=== PATIENT | female | born 1990 | race African-American/Black ===

== ENCOUNTER 2018-12-10 09:58 | Emergency (ER) | payer OTHER ==
[2018-12-10 10:09] VITALS: BP 104/66
--- NOTE | 2018-12-10 10:33 | ED ---
- HPI Summary HPI Summary: Pt is a 28 y/o F presenting to the ED brought in by EMS for . She is currently 34 wks , and this is her 1st . 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 The pts systolic BP was in the 80s-90s. The pt denies vaginal bleeding, discharge, fever, back pain, chills, erythema of eyes, sore throat, CP, SOB, cough, N/V, dysuria, hematuria, myalgia, edema, rash, or dizziness. She has had no prior complications with this . - History of Current Complaint Chief Complaint: EDOBProblems Stated Complaint: 34 WEEKS PREG/LOWER ABD PAIN PER EMS Time Seen by Provider: 12/10/18 09:59 Hx Obtained From: Patient Chief Complaint: Pain Onset/Duration: Started Minutes Ago, Still Present Timing: Constant, Lasting Minutes Severity: Severe Current Severity: Severe Pain Intensity: 9 Location of Pain: Suprapubic Character: Cramping Aggravating Factors: Nothing Alleviating Factors: Nothing Associated Signs and Symptoms: Negative: Back Pain, Fever, Nausea, Urinary Symptoms, Vaginal Bleeding or Discharge, Vomiting - Assessment Hx Now: Yes Vaginal Bleeding Amount: None Hx Hysterectomy: No - Allergies/Home Medications Allergies/Adverse Reactions: Allergies Allergy/AdvReac Type Severity Reaction Status Date / Time No Known Allergies Allergy Verified 01/10/15 09:30 PMH/Surg Hx/FS Hx/Imm Hx Previously Healthy: Yes Endocrine/Hematology History: Denies: Hx Diabetes Cardiovascular History: Denies: Hx Hypertension, Hx Pacemaker/ICD Respiratory History: Denies: Hx Asthma History: Denies: Hx Renal Disease Sensory History: Denies: Hx Hearing Aid Psychiatric History: Denies: Hx Panic Disorder Infectious Disease History: No Infectious Disease History: Denies: Traveled Outside the [place] in Last 30 Days - Family History Known Family History: Negative: Renal Disease - Social History Alcohol Use: None Hx Substance Use: No Substance Use Type: Reports: None Hx Tobacco Use: No Smoking Status (MU): Never Smoked Tobacco Review of Systems Negative: Fever, Chills Negative: Erythema Negative: Sore Throat Negative: Chest Pain Negative: Shortness Of Breath, Cough Positive: Abdominal Pain. Negative: Vomiting, Nausea Negative: dysuria, discharge, hematuria, other - vaginal bleeding Negative: Myalgia Negative: Rash Neurological: Negative - dizziness All Other Systems Reviewed And Are Negative: Yes Physical Exam - Summary Physical Exam Summary: Constitutional: Well-developed, Well-nourished, Alert. (-) Distressed Skin: Warm, Dry HENT: Normocephalic; Atraumatic Eyes: Conjunctiva normal Neck: Musculoskeletal ROM normal neck. (-) JVD, (-) Stridor, (-) Tracheal deviation Cardio: Rhythm regular, rate normal, Heart sounds normal; Intact distal pulses; The pedal pulses are 2+ and symmetric. Radial pulses are 2+ and symmetric. (-) Murmur Pulmonary/Chest wall: Effort normal. (-) Respiratory distress, (-) Wheezes, (-) Rales Abd: Gravid abd with fundal height above the umbilicus, suprapubic tenderness, ( -) Distension, (-) Guarding, (-) Rebound Musculoskeletal: (-) Edema Lymph: (-) Cervical adenopathy Neuro: Alert, Oriented x3 Psych: Mood and affect Normal - Physical Exam Triage Information Reviewed: Yes Vital Signs Reviewed: Yes Diagnostics - Vital Signs Vital Signs Temp Pulse Resp BP Pulse Ox 12/10/18 10:10 97.5 F 60 24 104/66 100 12/10/18 10:00 97.5 F 60 24 104/66 100 - Laboratory Lab Statement: Any lab studies that have been ordered have been reviewed, and results considered in the medical decision making process. Course/Dx - Course Course Of Treatment: Pt is a 28 y/o F presenting to the ED brought in by EMS for . She is currently 34 wks , and this is her 1st . 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 The pts systolic BP was in the 80s-90s. The pt denies vaginal bleeding, discharge, fever, back pain, chills, erythema of eyes, sore throat, CP, SOB, cough, N/V, dysuria, hematuria, myalgia, edema, rash, or dizziness. She has had no prior complications with this . Pt's physical exam shows a gravid abd with fundal height above the umbilicus and suprapubic tenderness. Dr. Velez was contacted at 1000 and the pt was immediately d/c'ed to labor & delivery. Dx includes pre-term labor. - Diagnoses Provider Diagnoses: labor with term delivery Discharge ED - Sign-Out/Discharge Documenting (check all that apply): Patient Departure - Discharge Plan Condition: Stable Disposition: ADMITTED TO [facility] Referrals: Eligio Leyva MD [Primary Care Provider] - - Attestation Statements Document Initiated by Scribe: Yes Documenting Scribe: Marina Wisdom Provider For Whom Scribe is Documenting (Include Credential): David Sadler MD. Scribe Attestation: Marina Jolly scribed for David Sadler MD. on 12/10/18 at 1624. Status of Scribe Document: Ready
== END 2018-12-10 10:10 | disposition short-term general hospital (02) ==
LOC: ED 09:58
DX: O60.23X0 Term delivery with preterm labor, third trimester, not applicable or unspecified (principal); Z3A.34 34 weeks gestation of pregnancy
CPT/HCPCS: 99282

== ENCOUNTER 2018-12-10 10:17 | Inpatient (IN) | payer OTHER ==
[2018-12-10] MEDS ORDERED: fentaNYL* 50 MCG/ML 2 ML VIAL (100 MCG VIAL) ONE ×2 (10:26→10:29)
[2018-12-10] MEDS ORDERED: Midazolam* 1 MG/ML 5 ML VIAL (5 MG) ONE (10:28)
[2018-12-10] MEDS ORDERED: fentaNYL* 50 MCG/ML 5 ML VIAL (250 MCG VIAL) ONE (10:28)
[2018-12-10] MEDS ORDERED: Methylergonovine INJ* 0.2 MG/ML 1ML AMP ONE (10:47)
[2018-12-10 11:10] LABS: Hematocrit 31 % (35-47); Mean Corpuscular HGB Conc 32 g/dL (31-36); Mean Corpuscular Hemoglobin 31 pg (27-31); Mean Corpuscular Volume 98 fL (80-97); Mean Platelet Volume 10.5 fL (7.4-10.4); Platelet Count 136 10^3/uL (150-450); Red Blood Count 3.19 10^6 /uL (3.70-4.87); Red Cell Distribution Width 14 % (10-15); White Blood Count 10.3 10^3/uL (3.5-10.8)
[2018-12-10 11:18] LABS: Activated Partial Thrombo Time 25.1 seconds (26.0-38.0); INR 0.94 (0.82-1.09)
[2018-12-10] MEDS ORDERED: EPHEDrine (Pressors)* 50 MG/ML VIAL ONE (11:39)
[2018-12-10] MEDS ORDERED: OXYTOCIN* 10 UNITS/ML 1 ML VIAL ONE (11:39)
[2018-12-10] MEDS ORDERED: Propofol* 10 MG/ML 20 ML BTL ONE (11:39)
[2018-12-10] MEDS ORDERED: Succinylcholine* 20 MG/ML 10 ML VIAL ONE (11:39)
[2018-12-10] MEDS ORDERED: PROCHLORPERAZINE INJ 5 MG/ML 2 ML VIAL IV PRN (11:44)
[2018-12-10] MEDS ORDERED: Ondansetron INJ* 2 MG/ML VIAL IV PRN ×2 (11:44→18:46)
[2018-12-10] MEDS ORDERED: fentaNYL* 50 MCG/ML 2 ML VIAL (100 MCG VIAL) IV PRN (11:44)
[2018-12-10] MEDS ORDERED: Naloxone* 0.4 MG/ML 1 ML VIAL IV PRN (11:44)
[2018-12-10] MEDS ORDERED: Acetaminophen IV 1GM/100ML * 1,000 MG/100 ML VIAL IVPB ONE (11:44)
[2018-12-10] MEDS ORDERED: Ketorolac INJ* 30 MG/ML 1 ML VIAL IV PRN (11:44)
[2018-12-10] MEDS ORDERED: oxyCODONE TAB* 5 MG TAB PO PRN ×2 (11:44→17:31)
[2018-12-10] MEDS ORDERED: Sodium Citrate/Citric Acid* 15 ML UDC ONE (11:48)
[2018-12-10] MEDS ORDERED: Acetaminophen TAB* 325 MG PO PRN (12:21)
[2018-12-10] MEDS ORDERED: oxyCODONE/Acetamin 5/325 MG* TAB PO PRN ×2 (12:21)
[2018-12-10] MEDS ORDERED: Dibucaine 1% 28.35 GM TUBE PR PRN (12:21)
[2018-12-10] MEDS ORDERED: Witch Hazel PAD* JAR TOPICAL PRN (12:21)
[2018-12-10] MEDS ORDERED: Zolpidem TAB* 5 MG PO PRN (12:21)
[2018-12-10] MEDS ORDERED: Glycerin ADULT SUPP PR PRN (12:21)
[2018-12-10] MEDS ORDERED: Lactated Ringers 1000 ML Bag* 1,000 ML IV SCH ×2 (13:00→18:00)
[2018-12-10 14:00] LABS: ALT 8 U/L (7-52); Albumin 3.2 g/dL (3.2-5.2); Albumin/Globulin Ratio 1.2 (1-3); Alkaline Phosphatase 99 U/L (34-104); BUN/Creatinine Ratio 13.4 (8-20); Blood Urea Nitrogen 9 mg/dL (6-24); CO2 Carbon Dioxide 17 mmol/L (22-32); Calcium 8.1 mg/dL (8.6-10.3); Chloride 108 mmol/L (101-111); EGFR African American 126.8 (>60); EGFR Non-African American 104.8 (>60); Globulin 2.7 g/dL (2-4); Glucose 98 mg/dL (70-100); Sodium 136 mmol/L (135-145); Total Protein 5.9 g/dL (6.4-8.9); Uric Acid 3.9 mg/dL (2.3-6.6)
[2018-12-10 14:17] LABS: Anion Gap 11 mmol/L (2-11)
[2018-12-10] MEDS: Simethicone TAB* 80 MG TAB.CHEW PO SCH ×3 (14:27→21:41)
[2018-12-10] MEDS: Docusate CAP* 100 MG PO SCH ×2 (14:29→21:41)
[2018-12-10] MEDS ORDERED: Ketorolac INJ* 30 MG/ML 1 ML VIAL IV PUSH PRN (17:18)
--- NOTE | 2018-12-10 17:38 | HP ---
General Information - Reason for Visit Arrived via ambulance with abdominal pain. She felt dizzy at home and almost passed out in the ambulance. - General Information Maternal Age: 28 Grav: 1 Para: 0 SAB: 0 IEA: 0 Estimated Due Date: 01/16/19 Determined By: LMP Maternal Blood Type and Rh: O Positive - Results this Serology/RPR Result: Non-Reactive Rubella Result: Immune HBsAg Result: Negative HIV Result: Negative Past Medical History Pertinent Past Medical History: Non-Contributory Pertinent Past Surgical History: None Pertinent Family History: Non-Contributory - Antepartal Records Antepartal Records: Reviewed, Uncomplicated Review of Systems Constitutional: Uncomfortable - Unable to get adequate review of systems due to need for STAT CS Exam Allergies/Adverse Reactions: Allergies No Known Allergies Allergy (Verified 01/10/15 09:30) Vital Signs 12/10/18 12/10/18 12/10/18 12:40 13:15 14:15 Temperature 99.1 F 98.7 F Pulse Rate 89 88 Respiratory 16 16 Rate Blood Pressure 133/49 110/68 (mmHg) O2 Sat by Pulse 99 Oximetry 12/10/18 15:45 Temperature 99.4 F Pulse Rate 87 Respiratory 16 Rate Blood Pressure 101/53 (mmHg) O2 Sat by Pulse Oximetry Lab Values - Entire Visit: Laboratory Tests 12/10/18 12/10/18 12/10/18 10:15 10:15 10:15 WBC 10.3 RBC 3.19 L Hgb 10.0 L Hct 31 L MCV 98 H MCH 31 MCHC 32 RDW 14 Plt Count 136 L MPV 10.5 H INR (Anticoag Therapy) 0.94 APTT 25.1 L Sodium Potassium Chloride Carbon Dioxide Anion Gap BUN Creatinine Est GFR ( Amer) Est GFR (Non-Af Amer) BUN/Creatinine Ratio Glucose Uric Acid Calcium Total Bilirubin AST ALT Alkaline Phosphatase Total Protein Albumin Globulin Albumin/Globulin Ratio Blood Type O Positive Antibody Screen Negative 12/10/18 10:15 WBC RBC Hgb Hct MCV MCH MCHC RDW Plt Count MPV INR (Anticoag Therapy) APTT Sodium 136 Potassium TNP Chloride 108 Carbon Dioxide 17 L Anion Gap 11 BUN 9 Creatinine 0.67 Est GFR ( Amer) 126.8 Est GFR (Non-Af Amer) 104.8 BUN/Creatinine Ratio 13.4 Glucose 98 Uric Acid 3.9 Calcium 8.1 L Total Bilirubin 0.40 AST TNP ALT 8 Alkaline Phosphatase 99 Total Protein 5.9 L Albumin 3.2 Globulin 2.7 Albumin/Globulin Ratio 1.2 Blood Type Antibody Screen - Measurements Height: 5 ft 3 in Weight: 200 lb Weight in lbs: [id number] Body Mass Index (BMI): 35.4 Pre- Weight: 165 lb Weight Gained This : 35 lbs and 0 ozs - Exam Other Exam Findings: Exam deferred due to need for STAT CS - Ultrasound/Biophysical Profile Ultrasound Status: Bedside Exam - FHR visually in the 60-70s. Assessment/Plan - Assessment @34.5wks GA with placental abruption who underwent STAT CS. Baby was delivered 17min s/p initial nurse assessment. - Plan Plan: Expedite C/S Delivery
[2018-12-10 18:00] LABS: Hematocrit 19 % (35-47); Hemoglobin 6.3 g/dL (12.0-16.0); Mean Corpuscular HGB Conc 34 g/dL (31-36); Mean Corpuscular Hemoglobin 31 pg (27-31); Mean Corpuscular Volume 92 fL (80-97); Mean Platelet Volume 8.8 fL (7.4-10.4); Platelet Count 93 10^3/uL (150-450); Red Blood Count 2.05 10^6 /uL (3.70-4.87); Red Cell Distribution Width 14 % (10-15); White Blood Count 15.6 10^3/uL (3.5-10.8)
[2018-12-10 18:23] LABS: ABS Lymphocytes 0.7 10^3/ul (1.0-4.8); ABS Monocytes 1.1 10^3/ul (0-0.8); ABS Neutrophils 13.8 10^3/ul (1.5-7.7); Lymphocyte % 4.5 %
--- NOTE | 2018-12-10 20:40 | OP ---
DATE OF OPERATION: 12/10/18 - ROOM #113 DATE OF : 89 SURGEON: Evelia Velez MD BOX STACKER: Nay Cortes CNM ANESTHESIA: General endotracheal. PRE-OP DIAGNOSES: 1. Intrauterine gestation at 34 and 5 weeks' gestational age. 2. bradycardia. 3. Abdominal pain. POST-OP DIAGNOSES: 1. Intrauterine gestation at 34 and 5 weeks' gestational age. 2. bradycardia. 3. Abdominal pain. 4. Placental abruption. OPERATIVE PROCEDURE: Primary lower transverse section. ESTIMATED BLOOD LOSS: 1800 mL including blood clot in the uterus. COUNTS: All correct. DRAINS: Wiley catheter. FLUIDS: Crystalloid. INDICATION: The patient is a 28-year-old G1, P0, who arrived to Labor and Delivery by ambulance with complaints of abdominal pain and passing out. On arrival, she was mildly obtunded. An ultrasound was quickly brought into the room with findings of a very low heart rate, estimated in the 60s to 70s. Therefore, staff was quickly mobilized for stat section. The patient verbally consented to the section. She did not have any support people with her at that time. She was quickly moved to the OR and underwent general anesthesia that was found to be adequate. FINDINGS: Female infant, Apgars 3, 5, and 7. Weight 4 pounds 8 ounces. Normal -appearing uterus, ovaries, and tubes. Placenta detached from the uterus with significant amount of blood clot inside the uterine cavity. DESCRIPTION OF PROCEDURE: The patient was placed in the supine position with a leftward tilt. A Wiley catheter was introduced into her bladder. She was prepped and draped in the normal fashion. A Pfannenstiel skin incision was made with a scalpel and carried down to the underlying layer of fascia. The fascia was incised on either side of the midline with a scalpel. The incision was extended laterally with a combination of sharp and blunt dissection. The inferior edge of the fascial incision was grasped with Terry clamps and dissected down bluntly. Then the superior edge of the fascial incision was grasped with Terry clamps and dissected down bluntly. The rectus muscles were in the midline and the peritoneum was entered bluntly. A transverse incision was made in the lower uterine segment with the scalpel. The was delivered in cephalic presentation without difficulty. The cord was clamped x2 and cut and the baby was handed to the stereo map plotter operator. A large amount of blood clot was found inside the uterine cavity immediately after the baby was removed. The placenta easily was removed then as well with evidence of clots and abruption. The uterus was exteriorized and cleared of clots and debris. The uterine incision was closed with 0 Vicryl in a running locked fashion. Initially, the uterus was boggy but once the incision was closed, it became more firm and the bleeding subsided. A second layer of suture was then placed imbricating the first. The abdomen was irrigated and the uterus was placed back into the abdominal cavity. The incision was inspected and good hemostasis was noted. The peritoneum was closed with 3-0 Vicryl in a running unlocked fashion. The muscles were inspected and good hemostasis was noted. The fascia was then closed with 0 Vicryl in a running unlocked fashion. Good hemostasis was also noted in the subcuticular layer. At this time, an x-ray was done since no count was done prior to starting the procedure. Then the skin was closed with susan. A dressing was placed. The patient was cleaned, moved to the stretcher, and taken to the recovery room in stable condition. [id number]/CPS #: [id number] MARY
[2018-12-11 01:40] LABS: ABS Lymphocytes 1.7 10^3/ul (1.0-4.8); ABS Monocytes 1.4 10^3/ul (0-0.8); ABS Neutrophils 13.2 10^3/ul (1.5-7.7); Hematocrit 26 % (35-47); Hemoglobin 8.7 g/dL (12.0-16.0); Lymphocyte % 10.2 %; Mean Corpuscular HGB Conc 34 g/dL (31-36); Mean Corpuscular Hemoglobin 31 pg (27-31); Mean Corpuscular Volume 91 fL (80-97); Mean Platelet Volume 8.9 fL (7.4-10.4); Platelet Count 83 10^3/uL (150-450); Red Blood Count 2.82 10^6 /uL (3.70-4.87); Red Cell Distribution Width 14 % (10-15); White Blood Count 16.4 10^3/uL (3.5-10.8)
[2018-12-11 01:58] LABS: Albumin 2.4 g/dL (3.2-5.2); BUN/Creatinine Ratio 12.5 (8-20); Calcium 7.5 mg/dL (8.6-10.3); EGFR Non-African American 128.9 (>60); Globulin 2.4 g/dL (2-4); Potassium 3.8 mmol/L (3.5-5.0); Schistocytes ABSENT; Total Bilirubin 0.6 mg/dL (0.2-1.0); Total Protein 4.8 g/dL (6.4-8.9); Uric Acid 3.6 mg/dL (2.3-6.6)
[2018-12-11 01:59] LABS: Platelet Count 83 10^3/ul (150-450)
[2018-12-11 02:12] LABS: Activated Partial Thrombo Time 30.9 seconds (26.0-38.0); INR 1.05 (0.82-1.09)
[2018-12-11 02:15] LABS: Fibrinogen 261.2 mg/dL (110.8-404.3)
[2018-12-11] MEDS: Simethicone TAB* 80 MG TAB.CHEW PO SCH ×4 (07:16→23:30)
[2018-12-11] MEDS: Docusate CAP* 100 MG PO SCH ×3 (07:16→21:20)
[2018-12-11] MEDS: Ferrous Gluconate TAB* 324 MG TAB PO SCH ×2 (08:20→21:19)
[2018-12-11] MEDS: Ibuprofen TAB* 600 MG PO PRN ×3 (08:45→21:20)
[2018-12-11 08:53] LABS: ABS Lymphocytes 1.3 10^3/ul (1.0-4.8); ABS Monocytes 1.2 10^3/ul (0-0.8); ABS Neutrophils 12.8 10^3/ul (1.5-7.7); Eosinophil % 0.1 %; Hematocrit 24 % (35-47); Hemoglobin 8.2 g/dL (12.0-16.0); Lymphocyte % 8.4 %; Mean Corpuscular HGB Conc 34 g/dL (31-36); Mean Corpuscular Hemoglobin 31 pg (27-31); Mean Corpuscular Volume 91 fL (80-97); Mean Platelet Volume 8.6 fL (7.4-10.4); Platelet Count 85 10^3/uL (150-450); Red Blood Count 2.65 10^6 /uL (3.70-4.87); Red Cell Distribution Width 14 % (10-15); White Blood Count 15.3 10^3/uL (3.5-10.8)
[2018-12-11] MEDS ORDERED: Benzocaine/Menthol LOZ* 1 LOZENGE MT PRN (10:40)
[2018-12-12] MEDS: Ferrous Gluconate TAB* 324 MG TAB PO SCH ×2 (08:23→21:05)
[2018-12-12] MEDS: Ibuprofen TAB* 600 MG PO PRN ×3 (08:23→21:05)
[2018-12-12] MEDS: Docusate CAP* 100 MG PO SCH ×3 (08:23→21:04)
[2018-12-12] MEDS: Simethicone TAB* 80 MG TAB.CHEW PO SCH ×3 (08:24→21:05)
[2018-12-13] MEDS: Ibuprofen TAB* 600 MG PO PRN ×2 (01:45→07:57)
[2018-12-13] MEDS: Ferrous Gluconate TAB* 324 MG TAB PO SCH (07:56)
[2018-12-13] MEDS: Docusate CAP* 100 MG PO SCH (07:56)
[2018-12-13] MEDS: Simethicone TAB* 80 MG TAB.CHEW PO SCH (07:57)
[2018-12-13 12:33] VITALS: BP 127/80
== END 2018-12-13 13:45 | disposition home or self-care (01) | DRG 786 ==
LOC: MCHOBOUT 10:17 → MCHOB 10:20
PROVIDERS: ADMIT Obstetrics & Gynecology; ATTEND Obstetrics & Gynecology
PROC: 30233N1 Transfusion of Nonautologous Red Blood Cells into Peripheral Vein, Percutaneous Approach (ICD-10-PCS; 2018-12-10)
PROC: 10D00Z1 Extraction of Products of Conception, Low, Open Approach (ICD-10-PCS; principal; 2018-12-10 10:15)
DX: O76 Abnormality in fetal heart rate and rhythm complicating labor and delivery (principal); O45.93 Premature separation of placenta, unspecified, third trimester; O90.81 Anemia of the puerperium; D64.89 Other specified anemias; Z3A.34 34 weeks gestation of pregnancy; Z37.0 Single live birth
CPT/HCPCS: 36415; 74018; 80053; 84550; 85025; 85027; 85049; 85060; 85362; 85384; 85610; 85730; 86850; 86900; 86901; 86922; 88307; A9270-GY; J0330; J1885; J2210; J2250; J2405; J2590; J2704; J3010; P9040

== ENCOUNTER 2019-01-03 23:46 | Emergency (ER) | payer OTHER ==
[2019-01-04 01:26] LABS: ABS Eosinophils 0.1 10^3/ul (0-0.6); ABS Lymphocytes 1.5 10^3/ul (1.0-4.8); ABS Monocytes 0.7 10^3/ul (0-0.8); Hematocrit 34 % (35-47); Hemoglobin 11.2 g/dL (12.0-16.0); Lymphocyte % 24.3 %; Mean Corpuscular HGB Conc 33 g/dL (31-36); Mean Corpuscular Hemoglobin 30 pg (27-31); Mean Corpuscular Volume 92 fL (80-97); Mean Platelet Volume 8.9 fL (7.4-10.4); Platelet Count 270 10^3/uL (150-450); Red Blood Count 3.73 10^6 /uL (3.70-4.87); Red Cell Distribution Width 15 % (10-15); White Blood Count 6.4 10^3/uL (3.5-10.8)
[2019-01-04 01:28] LABS: Albumin 3.6 g/dL (3.2-5.2); Albumin/Globulin Ratio 1.2 (1-3); BUN/Creatinine Ratio 19.5 (8-20); C Reactive Protein 3.92 mg/L (<8.01); Calcium 8.8 mg/dL (8.6-10.3); EGFR Non-African American 89.3 (>60); Potassium 3.9 mmol/L (3.5-5.0); Total Bilirubin 0.4 mg/dL (0.2-1.0); Total Protein 6.6 g/dL (6.4-8.9)
[2019-01-04 01:35] LABS: HCG Pregnancy 7.5 mIU/mL
--- NOTE | 2019-01-04 01:48 | ED ---
GI/ HPI - HPI Summary HPI Summary: 28-year-old female presents with abdominal pain today. pain is in the right lower abdomen. States it is intermittent. She denies any nausea vomiting diarrhea. She admits to dysuria. Just had a done a couple weeks ago. No rash. No chest pain or shortness of breath. Pain does not move anywhere. She states the pain has been decreasing. Hasn't taking anything for the pain. Has a follow-up with [facility] in the morning. She is breast-feeding. Has no medical conditions. - History of Current Complaint Chief Complaint: EDAbdPain Time Seen by Provider: 01/04/19 00:28 Stated Complaint: ABD PAIN PER PT Pain Intensity: 7 - Allergy/Home Medications Allergies/Adverse Reactions: Allergies Allergy/AdvReac Type Severity Reaction Status Date / Time No Known Allergies Allergy Verified 01/10/15 09:30 PMH/Surg Hx/FS Hx/Imm Hx Endocrine/Hematology History: Denies: Hx Diabetes Cardiovascular History: Denies: Hx Hypertension, Hx Pacemaker/ICD Respiratory History: Denies: Hx Asthma History: Denies: Hx Renal Disease Sensory History: Denies: Hx Hearing Aid Psychiatric History: Denies: Hx Panic Disorder - Immunization History Immunizations Up to Date: Yes Infectious Disease History: No Infectious Disease History: Denies: Traveled Outside the [place] in Last 30 Days - Family History Known Family History: Positive: Non-Contributory - Social History Alcohol Use: None Substance Use Type: Reports: None Smoking Status (MU): Never Smoked Tobacco Have You Smoked in the Last Year: No Review of Systems Negative: Fever Negative: Chest Pain Negative: Shortness Of Breath Positive: Abdominal Pain. Negative: Vomiting, Diarrhea, Nausea Positive: dysuria All Other Systems Reviewed And Are Negative: Yes Physical Exam Triage Information Reviewed: Yes Vital Signs On Initial Exam: Initial Vitals Temp Pulse Resp BP Pulse Ox 98.1 F 75 16 126/85 100 01/03/19 23:47 01/03/19 23:47 01/03/19 23:47 01/03/19 23:47 01/03/19 23:47 Vital Signs Reviewed: Yes Appearance: Positive: Well-Appearing Skin: Positive: Warm, Dry Head/Face: Positive: Normal Head/Face Inspection Eyes: Positive: Normal, Conjunctiva Clear ENT: Positive: Pharynx normal Respiratory/Lung Sounds: Positive: Clear to Auscultation, Breath Sounds Present Cardiovascular: Positive: Normal, RRR Abdomen Description: Positive: Soft, Other: - c section healing laceration clean dry and intact with no erythema, tenderness RLQ. Negative: McBurney's Point Tenderness Bowel Sounds: Positive: Present Musculoskeletal: Positive: Normal Neurological: Positive: Normal Psychiatric: Positive: Normal Diagnostics - Vital Signs Vital Signs Temp Pulse Resp BP Pulse Ox 01/03/19 23:47 98.1 F 75 16 126/85 100 - Laboratory Lab Results: Lab Results 01/04/19 01/04/19 01/04/19 Range/Units 01:04 01:04 01:04 WBC 6.4 (3.5-10.8) 10^3/uL RBC 3.73 (3.70-4.87) 10^6 /uL Hgb 11.2 L (12.0-16.0) g/dL Hct 34 L (35-47) % MCV 92 (80-97) fL MCH 30 (27-31) pg MCHC 33 (31-36) g/dL RDW 15 (10-15) % Plt Count 270 (150-450) 10^3/uL MPV 8.9 (7.4-10.4) fL Neut % (Auto) 62.5 % Lymph % (Auto) 24.3 % Armstrong % (Auto) 10.5 % Eos % (Auto) 2.0 % Baso % (Auto) 0.7 % Absolute Neuts (auto) 4.0 (1.5-7.7) 10^3/ul Absolute Lymphs (auto) 1.5 (1.0-4.8) 10^3/ul Absolute Monos (auto) 0.7 (0-0.8) 10^3/ul Absolute Eos (auto) 0.1 (0-0.6) 10^3/ul Absolute Basos (auto) 0.0 (0-0.2) 10^3/ul Absolute Nucleated RBC 0.0 10^3/ul Nucleated RBC % 0.0 Sodium 137 (135-145) mmol/L Potassium 3.9 (3.5-5.0) mmol/L Chloride 104 (101-111) mmol/L Carbon Dioxide 30 (22-32) mmol/L Anion Gap 3 (2-11) mmol/L BUN 15 (6-24) mg/dL Creatinine 0.77 (0.51-0.95) mg/dL Est GFR ( Amer) 108.0 (>60) Est GFR (Non-Af Amer) 89.3 (>60) BUN/Creatinine Ratio 19.5 (8-20) Glucose 103 H (70-100) mg/dL Lactic Acid 0.7 (0.5-2.0) mmol/L Calcium 8.8 (8.6-10.3) mg/dL Total Bilirubin 0.40 (0.2-1.0) mg/dL AST 15 (13-39) U/L ALT 13 (7-52) U/L Alkaline Phosphatase 63 (34-104) U/L C-Reactive Protein 3.92 (<8.01) mg/L Total Protein 6.6 (6.4-8.9) g/dL Albumin 3.6 (3.2-5.2) g/dL Globulin 3.0 (2-4) g/dL Albumin/Globulin Ratio 1.2 (1-3) Lipase 51 (11.0-82.0) U/L Beta HCG, Quant 7.50 mIU/mL Result Diagrams: 01/04/19 01:04 01/04/19 01:04 Lab Statement: Any lab studies that have been ordered have been reviewed, and results considered in the medical decision making process. Re-Evaluation - Re-Evaluation First Eval Re-Evaluation Time: 01:52 Change: Improved Comment: pain resolved Second Eval Re-Evaluation Time: 02:31 Comment: had some pain while pumping but that has resolved GIGU Course/Dx - Course Course Of Treatment: 28-year-old female presents with abdominal pain today. pain is in the right lower abdomen. States it is intermittent. She denies any nausea vomiting diarrhea. She admits to dysuria. Just had a done a couple weeks ago. No rash. No chest pain or shortness of breath. Pain does not move anywhere. She states the pain has been decreasing. Hasn't taking anything for the pain. Has a follow-up with [facility] in the morning. She is breast- feeding. Has no medical conditions. On exam tenderness mild right lower quadrant. Negative McBurney's point. wbc normal. CRP normal. Ultrasound shows fibroids and fluid around the right ovary. urine no infection. Patient's pain has resolved. We'll have follow-up with [facility]. told if develop any changes in symptoms to return. Patient understands agrees with plan. - Diagnoses Differential Diagnoses - Female: Appendicitis, Ovarian Cyst, Other - abscess Provider Diagnoses: Abdominal pain Discharge ED - Sign-Out/Discharge Documenting (check all that apply): Patient Departure Patient Received Moderate/Deep Sedation with Procedure: No - Discharge Plan Condition: Good Disposition: HOME Patient Education Materials: Acute Abdominal Pain (ED) Referrals: Eligio Leyva MD [Primary Care Provider] - Additional Instructions: follow up with ob Take tyenlol or ibuprofen every 6 hours as needed for pain Return to ED if develop fever or any new or worsening symptoms - Billing Disposition and Condition Condition: GOOD Disposition: Home - Attestation Statements Provider Attestation: I was available for consultation for this patient. I did not evaluate the patient or participate in any medical decision making or disposition decisions unless I am specifically named in the chart as having consulted on the patient. If I have consulted on the patient, please see my own ED note on the patient encounter. Riana Sanchez MD
[2019-01-04 02:22] LABS: Urine Appearance Clear; Urine Bilirubin Negative (Negative); Urine Blood Negative (Negative); Urine Color Straw; Urine Glucose Negative (Negative); Urine Ketones Negative (Negative); Urine Nitrite Negative (Negative); Urine Protein Negative (Negative); Urine Specific Gravity 1.009 (1.010-1.030); Urine Urobilinogen Negative (Negative)
[2019-01-04 02:44] VITALS: BP 110/68
== END 2019-01-04 02:34 | disposition home or self-care (01) ==
LOC: ED 23:46
DX: R10.9 Unspecified abdominal pain (principal); R30.0 Dysuria; Z79.899 Other long term (current) drug therapy
CPT/HCPCS: 36415; 76830; 80053; 81003; 83605; 83690; 84702; 85025; 86140; 99282